=== PATIENT | male | born 2000 | race Caucasian/White ===

== ENCOUNTER 2023-11-11 22:58 | Emergency (ER) | payer OTHER ==
[~2023-11-11] VITALS: Ht 177.8 cm; Wt 78.5 kg
[2023-11-12] MEDS ORDERED: FAMOTIDINE 20 MG TABLET ONE (00:09)
[2023-11-12] MEDS: FAMOTIDINE 20 MG TABLET PO ONE (00:13)
[2023-11-12 00:16] VITALS: BP 132/82; TEMP 97.7; O2SAT 98
== END 2023-11-12 00:14 | disposition home or self-care (01) ==
LOC: ER 22:59
DX: K21.9 Gastro-esophageal reflux disease without esophagitis (principal); I10 Essential (primary) hypertension; F41.9 Anxiety disorder, unspecified
CPT/HCPCS: A4606; A4663